=== PATIENT | male | born 1950 | race Caucasian/White ===

== ENCOUNTER 2016-10-08 09:12 | Emergency (ER) | payer MEDICARE, OTHER ==
[~2016-10-08 09:12] MED LIST: ACETAMINOPHEN325 MG PO; LEVAQUIN750 MG PO; LIPITOR10 MG PO; LISINOPRIL-HCT1 EAC1 PO; PERCOCET 10-321 EACH PO; PROAIR HFA8.5 GM IH
== END 2016-10-08 09:30 | disposition home or self-care (01) ==
LOC: ER 09:12
DX: N30.90 Cystitis, unspecified without hematuria (principal); E78.5 Hyperlipidemia, unspecified; I10 Essential (primary) hypertension; Z79.899 Other long term (current) drug therapy